=== PATIENT | female | born 1955 | race Caucasian/White ===

== ENCOUNTER 2016-11-15 18:21 | Inpatient (IN) | payer BC ==
[~2016-11-15] VITALS: Ht 167.6 cm; Wt 72.1 kg
--- NOTE | ~2016-11-15 | S ---
[facility] [place] [address] SURGICAL PATH RPT PROCEDURE Name: JARAD CORRAL Room #: 538-P [facility] [place] IN M.R.#: [id number] Admission: 11/15/16 Date of : 53 Discharge: 11/18/16 Report #: [id number] Path Case #: [id number] PATHOLOGY REPORT COLLECTION DATE: 11/16/2016 RECEIVED DATE: 11/16/2016 SUBMITTING PHYS: Dr. Markel Sanchez OTHER PHYS: Dr. Wade Ding SPECIMEN(S) RECEIVED: A.Appendix * * * * * * * * * * * * FINAL DIAGNOSIS: Appendix, appendectomy: - Acute appendicitis and periappendicitis with perforation. (ETHEL:seymour; d/t: 11/20/2016) PATHOLOGIST: Norm Alvarado M.D. REPORT ELECTRONICALLY SIGNED BY: Norm Alvarado M.D. DATE/TIME: 11/20/2016 11:31 * * * * * * * * * * * * GROSS PATHOLOGY: Received in formalin labeled "Jarad Corral and appendix," is a partially torn and disrupted appendix measuring 5.2 cm in length and 0.8 cm in diameter with a moderate amount of attached mesoappendix. The region where the appendix is partially torn is suggestive of a possible perforation site. The serosal surface is hemorrhagic, pink-cronin, and displays multiple adhesions and white-cronin exudate. Sectioning reveals a 0.3 cm in diameter lumen, which becomes pinpoint/obstructed as it approaches the distal tip. The mucosa is red-cronin and granular. The wall is thickened and measures up to 0.3 cm. Gluing Crew Leader sections are submitted as follows: A1 bisected distal tip and proximal resection margin A2 paper sales representative sections from body of appendix to include possible area of perforation (TTL; 11/19/2016) CLINICAL HISTORY: Pre-op diagnosis: Appendicitis Post-op diagnosis: Acute perforated appendicitis [address] [address] SURGICAL PATH RPT PROCEDURE Name: JARAD CORRAL Room #: 538-P [facility] [place] M.R.#: [id number] Admission: 11/15/16 Date of : 53 Discharge: 11/18/16 Report #: [id number] Path Case #: [id number] INITIAL CPT CODE(S): A; 80335 Professional services performed by [facility] at [address] , [place] [address] Technical services performed by [facility] at [address] [place] [address], [facility] [address] [place] [address]. [facility] [address] [address] PHONE: [phone] DIRECTOR: Jose Enrique Simon M.D. * * * END OF REPORT * * *
--- NOTE | ~2016-11-15 | EKG ---
[address] [address] ELECTROCARDIOGRAM REPORT Name: JUSTIN LANDA Room #: 538-P ADM IN M.R.#: [id number] Admission: 11/15/16 Attend Phys: Jennifer Noriega MD Discharge: Date of : 53 Report #: [id number] THIS REPORT FOR: //name// [facility] ED Test Date: 2016-11-15 Test Time: 18:45:05 Pat Name: JUSTIN LANDA Department: Room: 538 Gender: F Lawn Mower Operator: Emily CAT : 1955 Requested By: Jerad Maier Order Number: [id number] MD: Timothy Brown Measurements Intervals [place] Rate: 108 P: 77 HI: 130 QRS: 58 QRSD: 79 T: 58 QT: 316 QTc: 424 Interpretive Statements Sinus tachycardia Otherwise no significant abnormality Compared to ECG 10/25/2016 17:19:23 no significant change was found Electronically Signed On 11-16-2016 7:51:29 CROSSING SUPERVISOR by Timothy Brown [email or web address] <ELECTRONICALLY SIGNED> By: Timothy Brown MD, [facility] 11/16/16 0751 1845 44 Timothy Brown MD, FAC /EPI
--- NOTE | ~2016-11-15 | O ---
[facility] [place] [address] OPERATIVE REPORT Name: JUSTIN LANDA Room #: 538-P [facility] IN M.R.#: [id number] Admission: 11/15/16 Attend Phys: Wade Mccartney MD Discharge: 11/18/16 Date of : 53 Report #: [id number] THIS REPORT FOR: //name// CC: Lyle Mccartney DATE OF SERVICE: 11/16/2016 SURGEON: Markel Sanchez MD. PLANTING MATERIAL REMOVER: None. PREOPERATIVE DIAGNOSIS: Acute appendicitis. POSTOPERATIVE DIAGNOSIS: Acute nonsuppurative perforated appendicitis with contained abscess. PROCEDURE: Laparoscopic appendectomy. ANESTHESIA: General endotracheal anesthesia and local anesthetic. ESTIMATED BLOOD LOSS: 5 mL. SPECIMEN: Appendix. COMPLICATIONS: None appreciated. INDICATIONS FOR PROCEDURE: This 61-year-old female patient developed abdominal pain, nausea, vomiting and fever this past Saturday. With her progressive pain, she presented to her primary care physician's office. The patient was sent for a CT of the abdomen and pelvis which showed changes consistent with acute appendicitis as well as phlegmonous area 2 cm x 2 cm. The patient was admitted and found to have an elevated white blood cell count 13.8. She presents now for laparoscopic appendectomy, possible open appendectomy. OPERATIVE FINDINGS: Upon entrance into the abdominal cavity, inflammatory changes were seen in the right lower quadrant. There was edema of the wall of the small bowel overlying the appendix. Upon dissection of the appendix, an abscess cavity was encountered near the mid portion of the appendix. There was evidence for a perforation closer to the base of the appendix. Despite this, the base of the appendix was relatively uninvolved with acute inflammation. A window was able to be made adjacent to the base of the appendix through the mesoappendix to allow for stapling off of the appendix. Due to the abscess cavity and evidence for perforation, decision was made for placement of a drain. No other significant intraabdominal pathology was identified. The small bowel was runback at least 2 feet and there was no evidence [facility] [address] [place] [address] OPERATIVE REPORT Name: SYEDAJUSTIN STROUD Room #: 538-P [facility] IN M.R.#: [id number] Admission: 11/15/16 Attend Phys: Wade Mccartney MD Discharge: 11/18/16 Date of : 53 Report #: [id number] diverticulum. At the conclusion of the operation, sponge, needle, and instrument counts were correct. There was no evidence for iatrogenic injury. DESCRIPTION OF PROCEDURE IN DETAIL: After the benefits and risks of the procedure were explained to the patient, which include but are not limited to risks of bleeding, infection, postoperative pain, postoperative expectations, informed consent was obtained. The patient was identified in the preoperative holding area. She was receiving scheduled IV antibiotics. She was taken to the operating room and she was placed in the supine position. SCDs were placed on the patient's bilateral lower extremities and pneumatic compression was initiated. The patient was then given IV sedation and she was intubated without incident. A time-out was performed to identify the correct patient and procedure. Local anesthetic was infiltrated into the skin and subcutaneous tissue infraumbilically where a curvilinear incision was made with #15 blade scalpel. Dissection was carried down to the base of the appendix. A small fascial opening was created sharply. A 12 mm Visiport was then placed intraperitoneally with a 0-degree angled laparoscope. Pneumoperitoneum was achieved with insufflation of carbon dioxide to 15 mmHg. A 30-degree angled laparoscope was then inserted. A suprapubic 5 mm and left lower quadrant 5 mm port were each placed under direct visualization after local anesthetic was infiltrated into the skin and subcutaneous tissue and appropriately sized incisions were made. Operative findings were as noted above. The patient was placed in the Trendelenburg position, rotated to her left. Dissection was carried out to identify the appendix. The small bowel overlying the appendix was bluntly freed from the underlying appendix. The tip of the appendix was then grasped and lifted and while doing so, the mid portion of the appendix was exposed where the abscess cavity was present. The abscess was readily suctioned. Upon further dissection, a small opening was seen in the appendix. The base of the appendix was able to be visualized. A window was made in the mesoappendix with a [place] dissector. The blue load endoscopic 45 mm INNA stapler was then used to staple and divide the appendix at its base. The mesoappendix was divided with the ultrasonic dissector with good hemostasis. The appendix and mesoappendix were removed through the infraumbilical port site. The Jesus-Dustin fascial closure device was used to place a wjzqsi-bo-npigb 0 PDS suture with good approximation of the fascia. The suture was tagged and the port was replaced. Upon return to the abdominal cavity, the appendiceal stump was irrigated and suctioned and there was good hemostasis. Due to the inflammation that was near to the base of the appendix, decision was made to apply 10 mL of Tisseel. A 19-Korean Irving drain was then placed within the abdominal cavity and brought out through the suprapubic port site. The drain was secured to skin with a 2-0 nylon suture. The drain was positioned intraabdominally into the dependent portion of the pelvis as well as along the right pericolic gutter. The small bowel was runback 2 feet with no evidence for [facility] [address] [address] OPERATIVE REPORT Name: JUSTIN LANDA Room #: 538-P DIS IN M.R.#: [id number] Admission: 11/15/16 Attend Phys: Wade Mccartney MD Discharge: 11/18/16 Date of : 53 Report #: [id number] a Meckel diverticulum. Likewise, there was no evidence for iatrogenic injury or other significant intraabdominal pathology. The 12 mm port was removed and the suture was tied under direct visualization to ensure no incorporation of intraabdominal content. The abdominal cavity was then desufflated and the remaining 5 mm ports were removed. The skin incisions were closed with interrupted subcuticular 4-0 Monocryl sutures and Dermabond. The patient tolerated the procedure well. She was awakened, extubated, and taken to recovery room in stable condition with no apparent intraoperative complications. <ELECTRONICALLY SIGNED> By: Markel Sanchez MD, FACS 11/19/16 0851 1201 1301 Markel Sanchez MD, FACS /nt
--- NOTE | ~2016-11-15 | HC ---
[facility] [place] [address] CONSULTATION Name: JUSTIN LANDA Room #: 538-P ADM IN M.R.#: [id number] Admission: 11/15/16 Attend Phys: Jennifer Noriega MD Discharge: Date of : 53 Report #: [id number] THIS REPORT FOR: //name// CC: Jennifer Alvarenga Marcelluso DATE OF SERVICE: 11/15/2016 ATTENDING PHYSICIAN: Jennifer Noriega MD REASON FOR CONSULTATION: Abdominal pain. HISTORY OF PRESENT ILLNESS: This is a 61-year-old female patient who has had difficulty with generalized abdominal pain since this past Saturday. She notes that she was awakened from her sleep Saturday evening with the abdominal pain. Her pain progressively worsened to the point of which she sought medical attention at her primary care physician's office today. She was sent for a CT of the abdomen and pelvis which showed changes consistent with acute appendicitis. She was admitted through the emergency room thereafter where she was found to have an elevated white blood cell count. She notes that she developed shaking chills and relief of her pain just for undergoing a CT scan earlier today. She has had anorexia since she developed the pain on Saturday; however, at the present movement, she is both hungry and thirsty. She has had nausea with dry heaves since Saturday as well. PAST MEDICAL HISTORY: Significant for history of hepatitis C, ADHD, depression, and recent pneumonia. PAST SURGICAL HISTORY: Includes times 2, D and C, and tonsillectomy/adenoidectomy. HOME MEDICATIONS: Include Adderall, Prozac, and an as needed sleep aid. ALLERGIES: No known drug allergies. FAMILY HISTORY: The patient is uncertain as she was adopted. SOCIAL HISTORY: The patient denies use of tobacco or illicit drugs. She quit smoking in 1994. She admits to drinking 1 beer daily. She works as an insurance office manager. REVIEW OF SYSTEMS: As per history of present illness. In addition, GENERAL: The patient reports fever and chills. Denies unintentional weight loss. HEENT: Denies changes in taste, vision, hearing, or smell. RESPIRATORY: Denies shortness of breath, COPD or asthma. Her recent pneumonia [facility] [address] [facility] [place] [address] CONSULTATION Name: JUSTIN LANDA Room #: 538-P [facility] IN ..#: [id number] Admission: 11/15/16 Attend Phys: Jennifer Noriega MD Discharge: Date of : 53 Report #: [id number] was this past October. She was treated with antibiotics in the outpatient setting and chest x-ray today shows clearance of the pneumonia. CARDIOVASCULAR: Denies chest pain or palpitations. GASTROINTESTINAL: As per history of present illness. In addition, she denies bright red blood per rectum. She has never undergone colonoscopy in the past. GENITOURINARY: Denies dysuria, urgency, increased urinary frequency or hematuria. MUSCULOSKELETAL: Denies myalgia, arthralgia or arthritis. NEUROLOGIC: Denies headaches, numbness or tingling. PSYCHIATRIC: Denies anxiety or suicidal ideations. She has ADHD and depression. ENDOCRINE: Denies polydipsia, polyuria, heat or cold intolerance. HEMATOLOGIC: Denies easy bleeding, bruising or anemia. All other review of systems is negative. PHYSICAL EXAMINATION: VITAL SIGNS: Temperature 38.4 degrees Celsius (T-max 39.5 degrees Celsius), blood pressure 106/55, pulse 99, respirations 16. GENERAL: This is a well-developed, well-nourished 61-year-old female patient who appears younger than her stated age. HEENT: Atraumatic, normocephalic with moist mucosal membranes. Oropharynx is clear. She has no scleral icterus. NECK: Supple, no appreciable lymphadenopathy. Trachea is midline. CHEST: Clear bilaterally. No crackles or wheezes. CARDIOVASCULAR: Regular rate and rhythm, S1, S2. No S3 or S4. ABDOMEN: Soft and tender to palpation, greatest in the right lower quadrant. She has no rebound or guarding. No palpable masses, no appreciable hernias. Negative Rovsing sign. GENITOURINARY: Normal external female genitalia. EXTREMITIES: No clubbing, cyanosis or edema. NEUROLOGIC: Cranial nerves 2-12 grossly intact. PSYCHIATRIC: Normal mood and affect. SKIN AND INTEGUMENTARY: No acute inflammatory changes, rashes or lesions are present. LABORATORY DATA: CBC shows a white blood cell count 13.8, hemoglobin 13.6, hematocrit 39.0, platelets 203. Electrolytes show a sodium of 130, potassium 3.3, chloride 93, CO2 26, BUN 5, creatinine 0.8. RADIOLOGIC STUDIES: CT of the abdomen and pelvis shows a fluid filled dilated appendix with a 2 cm x 2 cm appendiceal tip fluid collection (may represent the appendix versus phlegmon). There is no evidence for free air or rupture. IMPRESSION AND PLAN: This is a 61-year-old female patient with the above listed history who now has evidence for acute appendicitis. The amount of time she has [address] [address] CONSULTATION Name: JUSTIN LANDA Room #: 538-P ADM IN M.R.#: [id number] Admission: 11/15/16 Attend Phys: Jennifer Noriega MD Discharge: Date of : 53 Report #: [id number] had appendicitis called into question as this may have certainly this past Saturday, in which case, this has been ongoing for the past 5 days. She does not have evidence for rupture of her appendix. Her white blood cell count was elevated. She is also now on hungry and thirsty. Despite this, the patient is felt to have acute appendicitis. We discussed the pathophysiology and natural history of acute appendicitis as well as the treatment alternatives and surgical options. The patient would most benefit from laparoscopic appendectomy. The risks, benefits, and expectations of the operation were discussed in detail with the patient. She understands and wishes to proceed. She is scheduled to undergo the operation at the next earliest availability. I have also strongly recommended to the patient that she undergo a colonoscopy as she has not undergone this in the past. This can be undertaken 6 weeks after an uncomplicated appendectomy. The patient is receiving scheduled Zosyn. I sincerely appreciate the opportunity to participate in the care of this patient and will leave further recommendations and orders in the electronic medical record as appropriate. <ELECTRONICALLY SIGNED> By: Markel Sanchez MD, FACS 11/16/16 0655 [id number] Markel Sanchez MD, FACS /nt
[~2016-11-15 18:21] MED LIST changes: -AUGMENTIN 875-1 EACH PO; -ONDANSETRON HCL4 M2 PO; -OXYCODONE HCL 55 MG PO; -SENOKOT-S1 TA1 PO
[2016-11-15 18:22] VITALS: BP 127/66
[2016-11-15 18:40] LABS: HEMOGLOBIN 13.6 gm/dL (12.0-15.0); MCH 32.4 pg (26.0-34.0); MCHC 34.8 % (28.0-37.0); MCV 92.9 fL (80.0-100.0); PLATELET COUNT 203 thou/uL (150-400); RDW 12.2 % (10.5-14.5); WBC 13.8 thou/uL (4.0-11.0)
[2016-11-15 18:45] LABS: MANUAL DIFF YES
[2016-11-15 18:50] LABS: CREATININE 0.8 mg/dL (0.6-1.3); POTASSIUM 3.3 mmol/L (3.5-5.1)
[2016-11-15 19:03] LABS: ABSOLUTE NEUTROPHILS 11.6 thou/uL (1.4-8.2); TOTAL CELL COUNT 100
[2016-11-15 20:12] VITALS: BP 117/65
[2016-11-15 21:00] VITALS: BP 106/55
[2016-11-16] VITALS (10 sets, daily range): BP systolic 11–133; BP diastolic 51–74
[2016-11-16 00:33] LABS: ALBUMIN 3.5 g/dL (3.4-5.0); DIRECT BILIRUBIN 0.3 mg/dL (<0.1-0.3); TOTAL BILIRUBIN 0.9 mg/dL (<0.1-1.0); TOTAL PROTEIN 8.1 g/dL (6.4-8.2)
[2016-11-16 05:52] LABS: HEMATOCRIT 37.7 % (37.0-47.0); HEMOGLOBIN 12.6 gm/dL (12.0-15.0); MCH 32.4 pg (26.0-34.0); MCHC 33.6 % (28.0-37.0); MCV 96.6 fL (80.0-100.0); RBC 3.9 mil/uL (4.20-5.00); RDW 12.6 % (10.5-14.5); WBC 7.4 thou/uL (4.0-11.0)
[2016-11-16 06:02] LABS: ALBUMIN 2.9 g/dL (3.4-5.0); CALCIUM 8.6 mg/dL (8.5-10.1); CREATININE 0.8 mg/dL (0.6-1.3); POTASSIUM 3.6 mmol/L (3.5-5.1); TOTAL BILIRUBIN 0.6 mg/dL (<0.1-1.0); TOTAL PROTEIN 7.2 g/dL (6.4-8.2)
[2016-11-17 04:00] VITALS: BP 97/58
[2016-11-17 06:15] LABS: HEMATOCRIT 34.8 % (37.0-47.0); HEMOGLOBIN 11.8 gm/dL (12.0-15.0); MCH 32.4 pg (26.0-34.0); MCHC 33.9 % (28.0-37.0); MCV 95.7 fL (80.0-100.0); PLATELET COUNT 183 thou/uL (150-400); RBC 3.64 mil/uL (4.20-5.00); RDW 12.4 % (10.5-14.5); WBC 9.8 thou/uL (4.0-11.0)
[2016-11-17 06:36] LABS: MANUAL DIFF YES
[2016-11-17 06:42] LABS: CALCIUM 8.3 mg/dL (8.5-10.1)
[2016-11-17 07:33] VITALS: BP 97/67
[2016-11-17 09:44] LABS: ABSOLUTE NEUTROPHILS 7.9 thou/uL (1.4-8.2); TOTAL CELL COUNT 100
[2016-11-17 16:03] VITALS: BP 128/74
[2016-11-17 19:25] VITALS: BP 131/64
[2016-11-18 04:40] VITALS: BP 123/63
[2016-11-18] MEDS ORDERED: OXYCODONE HCL 55 MG PO (10:53)
[2016-11-18] MEDS ORDERED: AUGMENTIN 875-1 EACH PO ×2 (10:53→11:00)
[2016-11-18] MEDS ORDERED: ONDANSETRON HCL4 M2 PO (10:53)
[2016-11-18] MEDS ORDERED: SENOKOT-S1 TA1 PO (11:00)
[2016-11-18 11:25] VITALS: BP 123/63
== END 2016-11-18 14:10 | disposition home or self-care (01) | DRG 340 ==
LOC: ER 18:21 → EROBS 19:26 → 5S 19:26
PROVIDERS: Nurse Practitioner; Surgery
PROC: 0D9W40Z Drainage of Peritoneum with Drainage Device, Percutaneous Endoscopic Approach (ICD-10-PCS; principal; 2016-11-16)
PROC: 0DTJ4ZZ Resection of Appendix, Percutaneous Endoscopic Approach (ICD-10-PCS; principal; 2016-11-16)
DX: K35.2 Acute appendicitis with generalized peritonitis (principal); E87.6 Hypokalemia; B19.20 Unspecified viral hepatitis C without hepatic coma; R11.0 Nausea; J45.909 Unspecified asthma, uncomplicated; F90.9 Attention-deficit hyperactivity disorder, unspecified type; F32.9 Major depressive disorder, single episode, unspecified; Z72.89 Other problems related to lifestyle; Z87.01 Personal history of pneumonia (recurrent); Z98.890 Other specified postprocedural states; Z87.891 Personal history of nicotine dependence
CPT/HCPCS: 10086; 50010; 50101; 50249; 50411; 50555; 50558; 50739; 50740; 50962; 51437; 51489; 51975; 52182; 52265; 53307; 54022; 54118; 56526; 56527; 62110; 62900; 70005

== ENCOUNTER → 2016-11-15 | Outpatient (CLI) | payer BC ==
[~2016-11-15] MED LIST: ADDERALL 10 MG10 MG PO; AMBIEN 5 MG TABL5 M1 PO; AUGMENTIN 875-1 EACH PO; IBUPROFEN 600600 M1 PO; KEFLEX500 MG PO; NAPROSYN500 MG PO; NORCO 5-325 TA1 EACH PO; ONDANSETRON HCL4 M2 PO; OXYCODONE HCL 55 MG PO; PREDNISONE 20 M20 MG PO; PROVENTIL HFA6.7 G1 INH; PROZAC; PROZAC 20 MG20 MG PO; SENOKOT-S1 TA1 PO
[2016-11-15 10:33] LABS: CREATININE 0.7 mg/dL (0.6-1.3)
== END ==
LOC: RAD 09:42
PROVIDERS: Family Medicine
DX: K37 Unspecified appendicitis (principal); R05 Cough; R50.9 Fever, unspecified; R10.32 Left lower quadrant pain